=== PATIENT | female | born 1995 | race Two or more races ===

== ENCOUNTER 2018-12-06 09:04 | Emergency (ER) | payer OTHER ==
[~2018-12-06] VITALS: Ht 167.6 cm; Wt 99.8 kg
== END 2018-12-06 13:17 | disposition home or self-care (01) ==
LOC: ER 09:04
DX: J11.1 Influenza due to unidentified influenza virus with other respiratory manifestations (principal)

== ENCOUNTER → 2019-01-09 | Emergency (ER) | payer OTHER ==
[~2019-01-09] VITALS: Ht 167.6 cm; Wt 95.3 kg
== END | disposition left against medical advice (07) ==
LOC: ER 19:51
DX: Z53.20 Procedure and treatment not carried out because of patient's decision for unspecified reasons (principal)

== ENCOUNTER 2019-01-25 18:34 | Emergency (ER) | payer OTHER ==
[~2019-01-25] VITALS: Ht 167.6 cm; Wt 97.1 kg
== END 2019-01-25 22:40 | disposition home or self-care (01) ==
LOC: ER 18:34
DX: B27.80 Other infectious mononucleosis without complication (principal)

== ENCOUNTER 2021-04-11 14:10 | Outpatient (CLI) | payer OTHER | END 2021-04-11 14:55 | disposition home or self-care (01) | LOC: PRENATAL 14:10 | PROVIDERS: ATTEND Obstetrics & Gynecology Maternal & Fetal Medicine | DX: Z36.89 Encounter for other specified antenatal screening (principal); O36.80X1 Pregnancy with inconclusive fetal viability, fetus 1; Z3A.13 13 weeks gestation of pregnancy ==

== ENCOUNTER 2021-05-21 07:54 | Outpatient (CLI) | payer OTHER | END 2021-05-21 08:54 | disposition home or self-care (01) | LOC: PRENATAL 07:54 | PROVIDERS: ATTEND Obstetrics & Gynecology Maternal & Fetal Medicine | DX: O35.0XX1 Maternal care for (suspected) central nervous system malformation in fetus, fetus 1 (principal); O35.3XX1 Maternal care for (suspected) damage to fetus from viral disease in mother, fetus 1; O98.512 Other viral diseases complicating pregnancy, second trimester; O99.212 Obesity complicating pregnancy, second trimester; Z36.89 Encounter for other specified antenatal screening; Z3A.19 19 weeks gestation of pregnancy ==

== ENCOUNTER 2022-12-27 02:18 | Emergency (ER) | payer OTHER ==
[~2022-12-27] VITALS: Ht 167.6 cm; Wt 90.7 kg
[2022-12-27] MEDS ORDERED: PHENAGIL TABLE1 EACH PO (06:47)
[2022-12-27] MEDS ORDERED: AMOX-CLAV 875-1 EAC1 PO (06:47)
[2022-12-27] MEDS ORDERED: ZYNCOF 20-400120 ML PO (06:47)
== END 2022-12-27 07:00 ==
LOC: ER 02:18
DX: J06.9 Acute upper respiratory infection, unspecified (principal); Z20.822 Contact with and (suspected) exposure to COVID-19

== ENCOUNTER 2023-04-21 20:06 | Emergency (ER) | payer OTHER ==
[~2023-04-21] VITALS: Ht 167.6 cm; Wt 102.1 kg
[~2023-04-21 20:06] MED LIST: AMOX-CLAV 875-1 EAC1 PO; PHENAGIL TABLE1 EACH PO; ZYNCOF 20-400120 ML PO
[2023-04-21 22:03] LABS: HEMATOCRIT 37.1 % (36.0-45.00); HEMOGLOBIN 11.5 g/dL (12.0-15.00); MEAN CORPUSCULAR HEMOGLOBIN 21.2 pg (27.00-32.0); PLATELET COUNT 371 K/uL (150-450); RED BLOOD COUNT 5.42 M/uL (4.00-6.00); RED CELL DISTRIBUTION WIDTH 17.8 % (11.5-14.5)
[2023-04-21 22:05] LABS: MEAN CELL VOLUME 68.3 fL (80.00-100.00)
[2023-04-21 22:17] LABS: CALCIUM 9.1 mg/dL (8.5-10.1); CREATININE SERUM 0.8 mg/dL (0.55-1.02); GFR 86.04; POTASSIUM 4.16 mEq/L (3.5-5.1)
[2023-04-21 23:10] LABS: URINE APPEARANCE Clear; URINE BILIRRUBIN Negative (NEGATIVE); URINE BLOOD Negative; URINE COLOR Yellow; URINE GLUCOSE Negative (NEGATIVE); URINE LEUKOCYTE Negative; URINE NITRATE Negative; URINE PROTEIN Negative (NEGATIVE); URINE UROBILINOGEN 0.2 E.U./dl
[2023-04-21 23:14] LABS: URINE BACTERIA 1482.9 uL (0.0-1933); URINE EPITHELIAL CELLS 40.4 uL (0.0-38.8); URINE RBC 6.4 uL (0.0-20.8); URINE WBC 14.9 uL (0.0-23.2)
== END 2023-04-22 00:10 | disposition home or self-care (01) ==
LOC: ER 20:07
PROVIDERS: Nurse Practitioner Family
DX: R00.0 Tachycardia, unspecified (principal); Z20.822 Contact with and (suspected) exposure to COVID-19; Z91.013 Allergy to seafood

== ENCOUNTER 2023-05-10 01:37 | Emergency (ER) | payer OTHER ==
[~2023-05-10] VITALS: Ht 162.6 cm; Wt 95.3 kg
[2023-05-10 03:49] LABS: HEMATOCRIT 35.4 % (36.0-45.00); HEMOGLOBIN 11.1 g/dL (12.0-15.00); MEAN CORPUSCULAR HEMOGLOBIN 21.2 pg (27.00-32.0); MEAN CORPUSCULAR HGB CONC 31.3 g/dl (32.0-36.0); PLATELET COUNT 310 K/uL (150-450); RED BLOOD COUNT 5.21 M/uL (4.00-6.00); RED CELL DISTRIBUTION WIDTH 17.9 % (11.5-14.5)
[2023-05-10 03:50] LABS: MEAN CELL VOLUME 67.9 fL (80.00-100.00)
[2023-05-10 04:39] LABS: ALBUMIN 3.3 gm/dL (3.4-5.0); BILIRUBIN TOTAL 0.22 mg/dL (0.3-1.2); CALCIUM 9.1 mg/dL (8.5-10.1); CREATININE SERUM 0.8 mg/dL (0.55-1.02); GFR 86.04; GLOBULINA 4.5 G/DL (2.4-3.5); POTASSIUM 3.73 mEq/L (3.5-5.1); TOTAL PROTEIN 7.8 gm/dL (6.4-8.2)
[2023-05-10] MEDS ORDERED: ZITHROMAX500 MG PO (09:03)
== END 2023-05-10 09:13 | disposition home or self-care (01) ==
LOC: ER 01:37
PROVIDERS: General Practice
DX: J06.9 Acute upper respiratory infection, unspecified (principal); Z91.013 Allergy to seafood

== ENCOUNTER 2024-01-18 18:24 | Emergency (ER) | payer OTHER ==
[~2024-01-18] VITALS: Ht 167.6 cm; Wt 98.4 kg
[~2024-01-18 18:24] MED LIST changes: +ZITHROMAX500 MG PO
[2024-01-18] MEDS ORDERED: AMOX1TAB5 (18:31)
[2024-01-18] MEDS ORDERED: KETOROLAC TROMETHAMINE 60 MG VIAL IM ONE ×2 (19:15→19:26)
[2024-01-18] MEDS ORDERED: DEXAMETHASONE SODIUM PHOSPHATE 4 MG/ML VIAL ONE (19:26)
[2024-01-18] MEDS ORDERED: DEXAMETHASONE SODIUM PHOSPHATE 4 MG/ML VIAL IM ONE (19:30)
[2024-01-18 19:53] LABS: HEMATOCRIT 35.9 % (36.0-45.00); HEMOGLOBIN 11.7 g/dL (12.0-15.00); MEAN CELL VOLUME 70.5 fL (80.00-100.00); MEAN CORPUSCULAR HGB CONC 32.6 g/dl (32.0-36.0); PLATELET COUNT 271 K/uL (150-450); RED BLOOD COUNT 5.09 M/uL (4.00-6.00); RED CELL DISTRIBUTION WIDTH 17.6 % (11.5-14.5)
== END 2024-01-18 21:34 | disposition home or self-care (01) ==
LOC: ER 18:25
PROVIDERS: Nurse Practitioner Family
DX: R07.0 Pain in throat (principal); Z91.013 Allergy to seafood; Z20.822 Contact with and (suspected) exposure to COVID-19

== ENCOUNTER 2024-03-28 15:25 | Emergency (ER) | payer OTHER ==
[~2024-03-28] VITALS: Ht 167.6 cm; Wt 93.4 kg
[~2024-03-28 15:25] MED LIST changes: +AMOX1TAB5
[2024-03-28 18:58] LABS: HEMATOCRIT 37.5 % (36.0-45.00); HEMOGLOBIN 12.1 g/dL (12.0-15.00); MEAN CELL VOLUME 73.2 fL (80.00-100.00); MEAN CORPUSCULAR HEMOGLOBIN 23.7 pg (27.00-32.0); MEAN CORPUSCULAR HGB CONC 32.4 g/dl (32.0-36.0); PLATELET COUNT 261 K/uL (150-450); RED BLOOD COUNT 5.12 M/uL (4.00-6.00); RED CELL DISTRIBUTION WIDTH 16.9 % (11.5-14.5)
== END 2024-03-28 20:13 | disposition home or self-care (01) ==
LOC: ER 15:25
PROVIDERS: General Practice
DX: J06.9 Acute upper respiratory infection, unspecified (principal); Z20.822 Contact with and (suspected) exposure to COVID-19; Z91.013 Allergy to seafood

== ENCOUNTER 2024-05-27 19:25 | Emergency (ER) | payer OTHER ==
[~2024-05-27] VITALS: Ht 167.6 cm; Wt 90.7 kg
[2024-05-27] MEDS ORDERED: DEXAMETHASONE SODIUM PHOSPHATE 4 MG/ML VIAL IM ONE (21:45)
[2024-05-27] MEDS ORDERED: CETIRIZINE HCL 5 MG/5 ML ML PO ONE (21:45)
[2024-05-27] MEDS ORDERED: TUSNEL LIQUID178 ML PO (23:23)
[2024-05-27] MEDS ORDERED: ZITHROMAX500 MG PO (23:23)
== END 2024-05-27 23:45 | disposition home or self-care (01) ==
LOC: ER 19:27
DX: J06.9 Acute upper respiratory infection, unspecified (principal); Z91.013 Allergy to seafood; Z20.822 Contact with and (suspected) exposure to COVID-19
CPT/HCPCS: 36415; 96372; 99282; J1100

== ENCOUNTER 2025-01-12 11:09 | Emergency (ER) | payer OTHER ==
[~2025-01-12] VITALS: Ht 167.6 cm; Wt 90.7 kg
[~2025-01-12 11:09] MED LIST changes: +TUSNEL LIQUID178 ML PO
[2025-01-12 13:17] VITALS: BP 95/65; O2SAT 100
[2025-01-12] MEDS ORDERED: CETIRIZINE HCL 5 MG/5 ML ML PO ONE (14:15)
[2025-01-12] MEDS ORDERED: ONDANSETRON HCL 2 MG/ML VIAL IV ONE (14:15)
[2025-01-12] MEDS ORDERED: FAMOTIDINE/PF 20 MG/2 ML VIAL IV ONE (14:15)
[2025-01-12] MEDS ORDERED: 0.9 % SODIUM CHLORIDE 1,000 ML IV ONE (14:15)
[2025-01-12 15:58] LABS: BASO % 0.4 % (0.1-1.2); EOS # 0.12 (0.04-0.54); EOS % 1.7 % (0.7-7.0); LYMPH # 1.56 (1.18-3.74); LYMPH % 22.7 % (19.3-53.1); MEAN PLATELET VOLUME 9.30 fl (9.4-12.4); MONO # 0.67 (0.24-0.82); MONO % 9.8 % (4.7-12.5); NEUT # 4.46 (1.56-6.13); NEUT % 65.0 % (34.0-71.1); RED CELL DISTRIBUTION WIDTH 15.7 % (11.6-14.4)
[2025-01-12 16:24] LABS: COVID-19 AG NEGATIVE (NEGATIVE)
[2025-01-12 16:34] LABS: ALT/SGPT 21.0 U/L (12-78); AST/SGOT 16.0 U/L (15-37); BILIRUBIN TOTAL 0.38 mg/dL (0.3-1.2); BUN CREA RATIO 16.0 (7.0-25.0); CREATININE SERUM 0.74 mg/dL (0.55-1.02); GFR 93.45; GLOBULINA 4.3 G/DL (2.4-3.5); GLUCOSE FASTING 89.0 mg/dL (65-100); OSMOLALITY SERUM 280.0 MOSM/KG (275-295)
[2025-01-12] MEDS ORDERED: ZYRTEC10 MG PO (17:23)
[2025-01-12] MEDS ORDERED: PEPCID AC20 MG PO (17:23)
== END 2025-01-12 17:56 ==
LOC: ER 12:12
PROVIDERS: General Practice
DX: K29.70 Gastritis, unspecified, without bleeding (principal); J00 Acute nasopharyngitis [common cold]; Z20.822 Contact with and (suspected) exposure to COVID-19; Z91.013 Allergy to seafood

== ENCOUNTER 2025-04-27 19:31 | Emergency (ER) | payer OTHER ==
[~2025-04-27] VITALS: Ht 167.6 cm; Wt 90.7 kg
[~2025-04-27 19:31] MED LIST changes: +PEPCID AC20 MG PO; +ZYRTEC10 MG PO
[2025-04-27] MEDS ORDERED: PEPCID AC20 MG PO (21:21)
[2025-04-27] MEDS ORDERED: AZITHROMYCIN500 MG PO (21:21)
[2025-04-27] MEDS ORDERED: ZYRTEC10 MG PO (21:21)
[2025-04-27] MEDS ORDERED: MEDROLPACK PO (21:21)
[2025-04-27] MEDS ORDERED: CEFTRIAXONE SODIUM 1,000 MG VIAL IM ONE (21:30)
[2025-04-27] MEDS ORDERED: KETOROLAC TROMETHAMINE 60 MG VIAL IM ONE ×2 (21:30→23:56)
[2025-04-27] MEDS ORDERED: CEFTRIAXONE SODIUM 1,000 MG VIAL ONE (23:57)
== END 2025-04-28 00:27 | disposition home or self-care (01) ==
LOC: ER 19:31
DX: J02.0 Streptococcal pharyngitis (principal); Z91.013 Allergy to seafood